=== PATIENT | male | born 1980 | race Caucasian/White ===

== ENCOUNTER 2020-03-24 09:26 | Day surgery (SDC) | payer OTHER ==
[2020-03-24] MEDS ORDERED: PROPOFOL INJ 200 MG/20 ML VIAL IV ONE ×2 (12:03→12:53)
--- NOTE | 2020-03-24 12:59 | Operative Report ---
Operative Report DATE OF SURGERY: 03/24/20 Operative Report: The risks, benefits and alternatives of the procedure including the risks of bleeding, perforation requiring surgery have been explained to the patient in detail and informed consent has been obtained. Patient is taken back to the operating room and placed in a left, lateral decubital position. Timeout was called. Both of medication is administered. Rectal examination is done which did not reveal any masses, tears or fissures. An Olympus scope was then introduced into the patient's rectum and advanced all the way to the cecum. Cecum was identified by the usual anatomical landmarks including the ileocecal valve as well as the appendiceal office. Photodocumentation is obtained. The scope was then sequentially pulled back via the various segments of the colon including the ascending colon, hepatic fracture, transverse colon, splenic fracture, descending colon finding to the rectosigmoid portions of the colon. Retroflexion maneuvers performed. Prep was good. PREOPERATIVE DIAGNOSIS: History of ulcerative colitis with blood in stool POSTOPERATIVE DIAGNOSIS: Normal mucosal evaluation without any evidence of flare of ulcerative colitis blood is due to internal hemorrhoids. Small polyp at the sigmoid junction attempted snare polypectomy but no tissue retrieved the polyp was ablated in situ OPERATION: Colonoscopy with snare polypectomy SURGEON: RAFITA AARON ANESTHESIA: LMAC TISSUE REMOVED OR ALTERED: As noted above. COMPLICATIONS: None. ESTIMATED BLOOD LOSS: None. INTRAOPERATIVE FINDINGS: As noted above. PROCEDURE: Patient tolerated the procedure well. No immediate postprocedure complications are noted. Patient is discharged in good condition. Discharge date 03/24/2020. Discharge diet: Regular. Discharge activity: Regular. 2 to 3-week follow-up to discuss findings. Patient is instructed to call the office or proceed to the emergency room should there be any further problems or questions. Wait on the pathology. 10-year surveillance colonoscopy.
[2020-03-24 13:42] VITALS: BP 125/91
== END 2020-03-24 13:45 | disposition home or self-care (01) ==
LOC: OROUT 09:26
PROVIDERS: ATTEND Internal Medicine Gastroenterology
DX: D12.5 Benign neoplasm of sigmoid colon (principal); K92.1 Melena; K64.8 Other hemorrhoids; Z87.19 Personal history of other diseases of the digestive system
CPT/HCPCS: 45380; 45385; 88305 ×2; J2704